=== PATIENT | male | born 1985 | race African-American/Black ===

== ENCOUNTER 2018-11-20 11:30 | Emergency (ER) | payer BC, OTHER ==
[2018-11-20 12:14] VITALS: BP 131/84
--- NOTE | 2018-11-20 12:38 | UC ---
Abdominal Pain Male HPI - HPI Summary HPI Summary: 33-year-old male presents with 4 day history of watery diarrhea, abdominal bloating, nausea, and lower abdominal pain. States he has been having multiple episodes of watery diarrhea per day. Often feels as if he still has to have a bowel movement even after defecating. He has taken milk of magnesia and Pepto- Bismol without relief of symptoms. No recent travel out of the country. Denies fever, chills, weakness, dizziness, vomiting, blood in stool, dysuria, frequency, urgency, or hematuria - History of Current Complaint Chief Complaint: UCAbdominalPain Stated Complaint: ABD DISCOMFORT Time Seen by Provider: 11/20/18 12:36 Hx Obtained From: Patient Pain Intensity: 3 - Allergies/Home Medications Allergies/Adverse Reactions: Allergies Allergy/AdvReac Type Severity Reaction Status Date / Time No Known Allergies Allergy Verified 11/20/18 12:01 Home Medications: Home Medications Bismuth Subsalicylate [Pepto-Bismol] 262 mg PO PRN 11/20/18 [History] Magnesium Hydroxide LIQ* [Milk of Magnesia LIQ*] 30 ml PO Q6H PRN 11/20/18 [ History Confirmed 11/20/18] NK [No Home Medications Reported] 11/20/18 [History Confirmed 11/20/18] PMH/Surg Hx/FS Hx/Imm Hx Previously Healthy: Yes - Denies significant PMH - Surgical History Surgical History: None - Family History Known Family History: Positive: Non-Contributory - Social History Occupation: Employed Full-time Lives: With Family Alcohol Use: None Substance Use Type: None Smoking Status (MU): Never Smoked Tobacco Review of Systems All Other Systems Reviewed And Are Negative: Yes Constitutional: Negative: Fever, Chills Respiratory: Positive: Negative Cardiovascular: Positive: Negative Gastrointestinal: Positive: Abdominal Pain, Diarrhea, Nausea. Negative: Vomiting Genitourinary: Negative: Dysuria, Hematuria, Frequency, Urgency Musculoskeletal: Positive: Negative Neurological: Positive: Negative Is Patient Immunocompromised?: No Physical Exam - Summary Physical Exam Summary: GENERAL APPEARANCE: Well developed, well nourished, alert and cooperative, and appears to be in no acute distress. CARDIAC: Normal S1 and S2. No S3, S4 or murmurs. Rhythm is regular. There is no peripheral edema, cyanosis or pallor. Extremities are warm and well perfused. Capillary refill is less than 2 seconds. Peripheral pulses intact. LUNGS: Clear to auscultation without rales, rhonchi, wheezing or diminished breath sounds. ABDOMEN:Hyperactive bowel sounds. Soft, nondistended. Tenderness in the LUQ and LLQ without guarding or rebound. No masses or hepatosplenomegally. No CVA tenderness. MUSKULOSKELETAL: ROM intact to all extremities. No joint erythema or tenderness. Normal muscular development. Normal gait. SKIN: Skin normal color, texture and turgor with no lesions or eruptions. Triage Information Reviewed: Yes Vital Signs: Initial Vital Signs Temp 98.8 F 11/20/18 12:04 Pulse 58 11/20/18 12:04 Resp 17 11/20/18 12:04 BP 131/84 11/20/18 12:04 Pulse Ox 100 11/20/18 12:04 Vital Signs Reviewed: Yes Abd Pain Male Course/Dx - Course Course Of Treatment: 33-year-old male presents with 4 day history of watery diarrhea, abdominal bloating, nausea, and lower abdominal pain. States he has been having multiple episodes of watery diarrhea per day. Often feels as if he still has to have a bowel movement even after defecating. He has taken milk of magnesia and Pepto- Bismol without relief of symptoms. No recent travel out of the country. Denies fever, chills, weakness, dizziness, vomiting, blood in stool, dysuria, frequency, urgency, or hematuria. Afebrile. Mildly hypertensive otherwise vital signs stable. Patient had hyperactive bowel sounds and tenderness in the left lower and upper quadrant and otherwise unremarkable exam. Discussed with patient that with his abdominal tenderness I cannot rule out the possibility of a colitis or diverticulitis and I'm recommending that he have a further evaluation in the emergency room at this time. Patient is agreeable to this and selecting to transport via private vehicle. - Differential Dx/Clinical Impression Differential Diagnosis/HQI/PQRI: Appendicitis, Bowel Obstruction, Constipation, Diverticulitis, Other - colitis Provider Diagnosis: LLQ pain - Physician Notification/Consults Discussed Patient Care With: Av Castro NP - [facility] ED Time Discussed With Above Provider: 12:59 Instructed by Provider To: MD Will See In ED Discharge - Sign-Out/Discharge Documenting (check all that apply): Patient Departure All imaging exams completed and their final reports reviewed: No Studies - Discharge Plan Condition: Stable Disposition: HOME Patient Education Materials: Abdominal Pain (ED) Referrals: Ronaldo Manzo MD [Primary Care Provider] - Additional Instructions: Based on your history and exam I am recommending that you be further evaluated in the emergency room at this time. Go directly to the emergency room from here. Do not eat or drink anything until you have been evaluated. - Billing Disposition and Condition Condition: STABLE Disposition: Home - Attestation Statements Provider Attestation: Per institutional requirements, I have reviewed the chart, however, I was not consulted specifically or made aware of this patient by the midlevel provider. I did not personally evaluate, interact with , or disposition this patient.
== END 2018-11-20 12:56 | disposition home or self-care (01) ==
LOC: UCCORT 11:30
DX: R10.32 Left lower quadrant pain (principal)
CPT/HCPCS: 99202; G0463